=== PATIENT | female | born 1945 | race Hispanic/Latino ===

== ENCOUNTER 2017-09-04 13:19 | Emergency (ER) | payer MEDICARE ==
[2017-09-04 13:31] VITALS: BP 163/95; PULSE 76; RESP 16; TEMP 97.5; O2SAT 98
[2017-09-04] MEDS ORDERED: Lidocaine 2% w Epi 1:100,000 Inj IJ ONE ×2 (13:39→13:43)
--- NOTE | 2017-09-04 13:46 | ED PDOC ---
HPI: Head Injury Time Seen by Provider: 09/04/17 13:35 Chief Complaint (Nursing): Abnormal Skin Integrity Chief Complaint (Provider): Chin laceration History Per: Patient History/Exam Limitations: no limitations Onset/Duration Of Symptoms: Hrs Patient States: Struck With Object, Cut With Object, Fell Striking Head Additional Complaint(s): Patient is a 72 y/o female with a past medical history of osteoporosis presenting to the emergency department for a chin laceration sustained at approximately 11:00 AM today with associated headache. Reports that she was attending a lecture in an auditorium when she tripped over a floor fixture, causing her to hit her chin against a wooden seat handle and falling backwards, hitting the back of her head on the ground. Also notes pain and swelling of her lower lips, and active bleeding of her chin laceration. Denies loss of consciousness, blood thinners (except aspirin sometimes), or other complaints. Tetanus shot is up to date. PCP: none provided. Past Medical History Reviewed: Historical Data, Nursing Documentation, Vital Signs Vital Signs: Last Vital Signs Temp 97.5 F L 09/04/17 13:28 Pulse 76 09/04/17 13:28 Resp 16 09/04/17 13:28 BP 163/95 H 09/04/17 13:28 Pulse Ox 98 09/04/17 13:28 - Medical History PMH: Osteoporosis - Surgical History Surgical History: No Surg Hx - Family History Family History: States: Unknown Family Hx - Social History Current smoker - smoking cessation education provided: No Ex-Smoker (has not smoked in the last 12 months): No Alcohol: None Drugs: Denies - Home Medications Home Medications: Ambulatory Orders Medication Instructions Recorded Penicillin VK [Penicillin VK Tab] 500 mg PO Q8 #15 tab 09/04/17 - Allergies Allergies/Adverse Reactions: Allergies Allergy/AdvReac Type Severity Reaction Status Date / Time No Known Allergies Allergy Verified 09/04/17 13:28 Review of Systems ROS Statement: Except As Marked, All Systems Reviewed And Found Negative ENT: Positive for: Other (lower lip pain and swelling) Skin: Positive for: Other (cut on chin with active bleeding) Neurological: Positive for: Headache Physical Exam - Reviewed Nursing Documentation Reviewed: Yes Vital Signs Reviewed: Yes - Physical Exam Appears: Positive for: Non-toxic, No Acute Distress Head Exam: Positive for: ATRAUMATIC (with no contusions, open wounds, or posterior/occiptal tenderness on palpation noted), NORMAL INSPECTION, NORMOCEPHALIC (2 cm laceration on anterior chin with active bleeding) Skin: Positive for: Normal Color, Warm, Dry Eye Exam: Positive for: Normal appearance ENT: Negative for: Other (teeth tenderness on palpation) Neck: Positive for: Normal Cardiovascular/Chest: Positive for: Regular Rate, Rhythm Respiratory: Negative for: Accessory Muscle Use, Respiratory Distress Gastrointestinal/Abdominal: Positive for: Normal Exam Extremity: Positive for: Normal ROM Neurologic/Psych: Positive for: Alert, Oriented (x3) - ECG O2 Sat by Pulse Oximetry: 98 (RA) Pulse Ox Interpretation: Normal - Progress ED Course And Treament: Patient re-examined. small 4 mm laceration noted internal lower lip. As it is too small to suture but may be deep will prescribe antibiotics for 5 days. Medical Decision Making Medical Decision Making: Time: 13:40 Initial impression: Chin laceration and head injury Initial plan: Labs CT Head without contrast Facial/orbital CT Tylenol 650 mg Lidocaine 1 mL injection 13:50 Patient consented to placement of stitches for chin laceration. Patient tolerated procedure well. Refer to procedure note for details. 14:[address] scan reviewed. Findings noted as follows: HEMORRHAGE: No intracranial hemorrhage. BRAIN: Very limited expanded ventricular sulcal and cisternal spaces are again appreciated compatible diffuse cerebral atrophy. Trace periventricular chronic microangiopathy is identified in the interval. Good corticomedullary differentiation is appreciated throughout. No mass effect. Midline brain anatomy is unremarkable as well as the craniocervical junction. VENTRICLES: Unremarkable. No hydrocephalus. CALVARIUM: No fracture of the calvarium and skull base is appreciated. PARANASAL SINUSES: Unremarkable as visualized. No significant inflammatory changes. MASTOID AIR CELLS: Unremarkable as visualized. No inflammatory changes. OTHER FINDINGS: None. IMPRESSION: Minimal age related neuro degenerative changes are reiterated. No acute intracranial findings identified. No fracture of the skull base or calvarium at this time. The presence of borderline chronic microangiopathy is the only significant interval change compared to 10/09/2011 CT. 14:[address] scan reviewed. Findings noted as follows: RIGHT ORBIT: RIGHT BONY ORBIT: Normal. RIGHT INTRAORBITAL STRUCTURES: Globe: Normal. Extraocular muscles: Normal. Post septal space: Normal. Optic Nerve: Normal. Lacrimal Apparatus: Normal. RIGHT PRESEPTAL SOFT TISSUES: Normal. LEFT ORBIT: LEFT BONY ORBIT: Normal. LEFT INTRAORBITAL STRUCTURES: Globe: Normal. Extraocular muscles: Normal. Post septal space: Normal Optic Nerve: Normal. . Lacrimal Apparatus: Normal. LEFT PRESEPTAL SOFT TISSUES: Normal. OTHER: Emphysema soft tissue changes are incidentally noted in the deep limp soft tissues superiorly and inferiorly. Clinically correlate for potential internal lacerations in the oral cavity. IMPRESSION: 1. No significant posttraumatic findings are seen throughout the bilateral orbits including fracture and soft tissue edema. 2. Incidental note is made of emphysematous changes in the soft tissues deep to the lips superiorly and inferiorly and clinical correlation recommended for potential internal right external laceration at the level of the anterior mouth/ maxilla/ mandible regions. 15:11 Upon provider reevaluation patient is feeling better, is medically stable, and requires no further treatment in the ED at this time. Patient will be discharged with Rx for Penicillin VK. Counseling was provided and all questions were answered regarding diagnosis. There is agreement to discharge plan with a need for follow up with PMD and ED in 5 days for suture removal. Return if symptoms persist or worsen. Clinical Impression: Facial laceration and laceration of floor of mouth ~ Scribe Attestation: Documented by Kenia Garcia, acting as a scribe for ALEKSANDER Huynh. Provider Scribe Attestation: All medical record entries made by the Scribe were at my direction and personally dictated by me. I have reviewed the chart and agree that the record accurately reflects my personal performance of the history, physical exam, medical decision making, and the department course for this patient. I have also personally directed, reviewed, and agree with the discharge instructions and disposition. Procedures - Laceration/Wound Repair Anterior Face Wound Length (cm): 2 Wound's Depth, Shape: superficial Wound Explored: clean Anesthesia: Lidocaine w/ Epi (2%) Wound Repaired With: Sutures Suture Size/Type: 6:0, proline (interrupted) Number of Sutures: 4 Wound Complexity: Simple Disposition - Clinical Impression Clinical Impression: Laceration of floor of mouth, Facial laceration - Patient ED Disposition Is Patient to be Admitted: No Doctor Will See Patient In The: Office Counseled Patient/Family Regarding: Studies Performed, Diagnosis, Need For Followup, Rx Given - Disposition Disposition: Routine/Home Disposition Time: 15:11 Condition: FAIR Additional Instructions: F/U WITH ED OR PMD IN 5 DAYS FOR SUTURE REMOVAL Prescriptions: Penicillin VK [Penicillin VK Tab] 500 mg PO Q8 #15 tab Instructions: Facial Laceration (ED) Forms: [employer] (Georgian)
--- NOTE | 2017-09-04 14:57 | CT ---
PROCEDURE: CT HEAD WITHOUT CONTRAST. HISTORY: HEAD INJURY COMPARISON: Head CT without contrast 10/09/2011. TECHNIQUE: Axial computed tomography images were obtained through the head/brain without intravenous contrast. Radiation dose: Total exam DLP = 759.74 mGy-cm. This CT exam was performed using one or more of the following dose reduction techniques: Automated exposure control, adjustment of the mA and/or kV according to patient size, and/or use of iterative reconstruction technique. FINDINGS: HEMORRHAGE: No intracranial hemorrhage. BRAIN: Very limited expanded ventricular sulcal and cisternal spaces are again appreciated compatible diffuse cerebral atrophy. Trace periventricular chronic microangiopathy is identified in the interval. Good corticomedullary differentiation is appreciated throughout. No mass effect. Midline brain anatomy is unremarkable as well as the craniocervical junction. VENTRICLES: Unremarkable. No hydrocephalus. CALVARIUM: No fracture of the calvarium and skull base is appreciated. PARANASAL SINUSES: Unremarkable as visualized. No significant inflammatory changes. MASTOID AIR CELLS: Unremarkable as visualized. No inflammatory changes. OTHER FINDINGS: None. IMPRESSION: Minimal age related neuro degenerative changes are reiterated. No acute intracranial findings identified. No fracture of the skull base or calvarium at this time. The presence of borderline chronic microangiopathy is the only significant interval change compared to 10/09/2011 CT.
--- NOTE | 2017-09-04 15:01 | CT ---
PROCEDURE: CT ORBITS WITHOUT CONTRAST. HISTORY: R/O MANDIBULAR FX COMPARISON: None available. TECHNIQUE: Axial CT images of the orbits were obtained. Coronal and sagittal reformats were generated. Radiation dose: Total exam DLP = mGy-cm. This CT exam was performed using one or more of the following dose reduction techniques: Automated exposure control, adjustment of the mA and/or kV according to patient size, and/or use of iterative reconstruction technique. FINDINGS: RIGHT ORBIT: RIGHT BONY ORBIT: Normal. RIGHT INTRAORBITAL STRUCTURES: Globe: Normal. Extraocular muscles: Normal. Post septal space: Normal. Optic Nerve: Normal. Lacrimal Apparatus: Normal. RIGHT PRESEPTAL SOFT TISSUES: Normal. LEFT ORBIT: LEFT BONY ORBIT: Normal. LEFT INTRAORBITAL STRUCTURES: Globe: Normal. Extraocular muscles: Normal. Post septal space: Normal Optic Nerve: Normal. . Lacrimal Apparatus: Normal. LEFT PRESEPTAL SOFT TISSUES: Normal. OTHER: Emphysema soft tissue changes are incidentally noted in the deep limp soft tissues superiorly and inferiorly. Clinically correlate for potential internal lacerations in the oral cavity. IMPRESSION: 1. No significant posttraumatic findings are seen throughout the bilateral orbits including fracture and soft tissue edema. 2. Incidental note is made of emphysematous changes in the soft tissues deep to the lips superiorly and inferiorly and clinical correlation recommended for potential internal right external laceration at the level of the anterior mouth/maxilla/ mandible regions.
== END 2017-09-04 15:21 | disposition home or self-care (01) ==
LOC: H.ER 13:19
DX: S09.90XA Unspecified injury of head, initial encounter (principal); S01.81XA Laceration without foreign body of other part of head, initial encounter; S01.512A Laceration without foreign body of oral cavity, initial encounter; W01.0XXA Fall on same level from slipping, tripping and stumbling without subsequent striking against object, initial encounter; Y92.89 Other specified places as the place of occurrence of the external cause; I73.9 Peripheral vascular disease, unspecified; J43.9 Emphysema, unspecified; M81.0 Age-related osteoporosis without current pathological fracture

== ENCOUNTER 2017-09-09 17:23 | Emergency (ER) | payer MEDICARE ==
[2017-09-09 17:28] VITALS: BP 177/80; PULSE 71; RESP 16; TEMP 97.6; O2SAT 98
--- NOTE | 2017-09-09 17:48 | ED PDOC ---
HPI: Wound Care - HPI Time Seen by Provider: 09/09/17 17:31 Chief Complaint (Nursing): Suture/Staple Removal Chief Complaint (Provider): Suture/Staple Removal History Per: Patient Exam Limitations: no limitations Onset/Duration Of Symptoms: Days Current Symptoms Are (Timing): Still Present Additional Complaint(s): Radha is a 72 y/o female who returns to the ED for suture removal. States she had 4 sutures placed to the chin on 09/04/17. No signs of infection, redness, or fever. PMD: Provider TBD Past Medical History Reviewed: Historical Data, Nursing Documentation, Vital Signs Vital Signs: Last Vital Signs Temp 97.6 F 09/09/17 17:25 Pulse 71 09/09/17 17:25 Resp 16 09/09/17 17:25 BP 177/80 H 09/09/17 17:25 Pulse Ox 98 09/09/17 17:25 - Medical History PMH: Osteoporosis Denies: Chronic Kidney Disease - Family History Family History: States: Unknown Family Hx - Home Medications Home Medications: Ambulatory Orders Medication Instructions Recorded Penicillin VK [Penicillin VK Tab] 500 mg PO Q8 #15 tab 09/04/17 - Allergies Allergies/Adverse Reactions: Allergies Allergy/AdvReac Type Severity Reaction Status Date / Time No Known Allergies Allergy Verified 09/09/17 17:24 Review of Systems ROS Statement: Except As Marked, All Systems Reviewed And Found Negative Constitutional: Negative for: Fever Skin: Positive for: Other (Sutures on chin) Physical Exam - Reviewed Nursing Documentation Reviewed: Yes Vital Signs Reviewed: Yes - Physical Exam Appears: Positive for: Well, Non-toxic, No Acute Distress Head Exam: Positive for: ATRAUMATIC, NORMAL INSPECTION (with 4 6:0 Nylon sutures placed on chin. No signs of infection or drainage. Clean, dry, intact), NORMOCEPHALIC Skin: Positive for: Normal Color, Warm, Dry Eye Exam: Positive for: Normal appearance Neck: Positive for: Normal Neurologic/Psych: Positive for: Alert, Oriented - ECG O2 Sat by Pulse Oximetry: 98 (RA) Pulse Ox Interpretation: Normal Medical Decision Making Medical Decision Making: Clinical Impression: Encounter for suture removal Time: 17:40 4 sutures were removed without difficulty using suture removal kit and 11 blade. Provided instructions for wound care. Patient medically stable for discharge. There is agreement to discharge plan. Return if symptoms persist or worsen. Scribe Attestation: Documented by Nilda Madden, acting as a scribe for Clarisa Cowan PA-C Provider Scribe Attestation: All medical record entries made by the Scribe were at my direction and personally dictated by me. I have reviewed the chart and agree that the record accurately reflects my personal performance of the history, physical exam, medical decision making, and the department course for this patient. I have also personally directed, reviewed, and agree with the discharge instructions and disposition. Disposition - Clinical Impression Clinical Impression: Removal of suture - Patient ED Disposition Is Patient to be Admitted: No Counseled Patient/Family Regarding: Diagnosis, Need For Followup - Disposition Disposition: Routine/Home Disposition Time: 17:40 Condition: STABLE Instructions: Stitches Removal (ED) Forms: [employer] (Wolof)
== END 2017-09-09 17:57 | disposition home or self-care (01) ==
LOC: H.ER 17:23
DX: Z48.02 Encounter for removal of sutures (principal)